=== PATIENT | male | born 1950 | race American Indian/Alaskan Native ===

== ENCOUNTER 2020-01-13 12:23 | Emergency (ER) | payer MEDICARE ==
--- NOTE | 2020-01-13 12:46 | Emergency Department Report ---
Blank Doc - Documentation Documentation: 69-year-old male that presents with bilateral leg swelling. This initial assessment/diagnostic orders/clinical plan/treatment(s) is/are subject to change based on patient's health status, clinical progression and re- assessment by fellow clinical providers in the ED. Further treatment and workup at subsequent clinical providers discretion. Patient/guardians urged not to elope from the ED as their condition may be serious if not clinically assessed and managed. Initial orders include: 1- Patient sent to MAIN ED for further evaluation and treatment 2- cardiac workup
--- NOTE | 2020-01-13 13:39 | XRay Report ---
CHEST 2 VIEWS INDICATION: Chest Pain. COMPARISON: None available. FINDINGS: Support devices: None. Heart: Enlarged. Pulmonary vasculature: Mild enlargement of the central pulmonary vessels. Lungs/pleura: Wedge-shaped airspace disease of the right lower lobe on both views. The rest of the zulay ngs are relatively clear. No pleural effusion. No pneumothorax. Additional findings: None. IMPRESSION: 1. Right lower lobe pneumonia. 2. Cardiomegaly but no CHF. Signer Name: Harry Arreola MD Signed: 01/13/2020 1:35 PM Workstation Name: [id number]
[2020-01-13 16:57] LABS: Basophils % (Auto) 0.8 % (0.0-1.8); Eosinophils % (Auto) 0.6 % (0.0-4.3); Hemoglobin 17.2 gm/dl (11.8-15.2); Lymphocytes # (Auto) 1.1 K/mm3 (1.2-5.4); Lymphocytes % (Auto) 19.7 % (13.4-35.0); Mean Corpuscular HGB Conc 32 % (32-34); Mean Corpuscular Volume 99 fl (84-94); Monocytes # (Auto) 0.3 K/mm3 (0.0-0.8); Monocytes % (Auto) 5.9 % (0.0-7.3); Red Blood Count 5.36 M/mm3 (3.65-5.03); Red Cell Distribution Width 15.8 % (13.2-15.2)
[2020-01-13 17:01] LABS: Platelet Count 133 K/mm3 (140-440)
[2020-01-13 17:14] LABS: Alanine Aminotransferase 12 units/L (7-56); Albumin 3.8 g/dL (3.9-5); BUN/Creatinine Ratio 18; Blood Urea Nitrogen 21 mg/dL (9-20); Calcium 9.7 mg/dL (8.4-10.2); Hemolysis Index 4
[2020-01-13 17:29] LABS: INR 1.14 (0.87-1.13)
[2020-01-13 17:30] LABS: Partial Thromboplastin Time 26.4 Sec. (24.2-36.6)
--- NOTE | 2020-01-13 18:30 | Emergency Department Report ---
ED General Adult HPI - General Chief complaint: Extremity Problem,Nontraumatic Stated complaint: WATER IN LEG Time Seen by Provider: 01/13/20 12:45 Source: patient, RN notes reviewed Mode of arrival: Ambulatory Limitations: No Limitations - History of Present Illness Initial comments: The patient is a 69-year-old gentleman. The patient does not known to myself previously. He does not have a local primary care doctor. He may have a history of hypertension, but he does not recall what medication he takes, if any. He presents to the ER with a primary complaint of bilateral lower extremity swelling for 1 month. This is painless. He denies DVT and pulmonary embolism risk factors. He specifically denies headache, neck pain, chest pain, abdominal pain, shortness of breath, orthopnea. He reports that also over the past 3 days, he has been coughing up blood, and possibly spitting up blood. He does have poor dentition, and he denies defecation of blood. Lower extremity swelling is constant, painless, does not radiate anywhere, and does not have exacerbating or relieving factors. He denies exposure to known coronavirus patients. He also denies coronavirus risk factors. -: Sudden, week(s) Location: left, right, lower extremity Quality: other Consistency: other Improves with: other Worsens with: other Associated Symptoms: other - Related Data Previous Rx's Medication Instructions Recorded Last Taken Type Amoxicillin/Potassium Clav 2 each PO BID #18 tab.er.12h 01/13/20 Unknown Rx [Augmentin Xr 1,000-62.5 Tab] Aspirin [Aspirin BABY CHEW TAB] 81 mg PO QDAY #30 tab.chew 01/13/20 Unknown Rx Chlorhexidine Mouthwash [Peridex] 15 ml MM BID #1 bottle 01/13/20 Unknown Rx Doxycycline Monohydrate 100 mg PO BID #9 capsule 01/13/20 Unknown Rx Furosemide [Lasix] 20 mg PO QDAY #30 tablet 01/13/20 Unknown Rx lisinopriL [Zestril TAB] 5 mg PO QDAY #30 tablet 01/13/20 Unknown Rx Allergies Allergy/AdvReac Type Severity Reaction Status Date / Time aspirin Allergy Nausea Unverified 03/25/14 09:22 ED Review of Systems ROS: Stated complaint: WATER IN LEG Other details as noted in HPI Constitutional: denies: fever Eyes: as per HPI ENT: as per HPI Respiratory: see HPI Cardiovascular: as per HPI Endocrine: see HPI Gastrointestinal: as per HPI Genitourinary: as per HPI Musculoskeletal: as per HPI Skin: as per HPI Neurological: as per HPI Psychiatric: as per HPI Hematological/Lymphatic: as per HPI ED Past Medical Hx - Past Medical History Previous Medical History?: Yes Hx Hypertension: Yes - Surgical History Past Surgical History?: Yes Additional Surgical History: stomach surgery for CA - Social History Smoking Status: Current Every Day Smoker Substance Use Type: None - Medications Home Medications: Home Medications Medication Instructions Recorded Confirmed Last Taken Type Amoxicillin/Potassium Clav 2 each PO BID #18 tab.er.12h 01/13/20 Unknown Rx [Augmentin Xr 1,000-62.5 Tab] Aspirin [Aspirin BABY CHEW TAB] 81 mg PO QDAY #30 tab.chew 01/13/20 Unknown Rx Chlorhexidine Mouthwash [Peridex] 15 ml MM BID #1 bottle 01/13/20 Unknown Rx Doxycycline Monohydrate 100 mg PO BID #9 capsule 01/13/20 Unknown Rx Furosemide [Lasix] 20 mg PO QDAY #30 tablet 01/13/20 Unknown Rx lisinopriL [Zestril TAB] 5 mg PO QDAY #30 tablet 01/13/20 Unknown Rx ED Physical Exam - General Limitations: No Limitations General appearance: alert, in no apparent distress - Head Head exam: Present: atraumatic, normocephalic - Eye Eye exam: Present: normal appearance, EOMI. Absent: nystagmus - ENT ENT exam: Present: normal exam, normal orophraynx, mucous membranes moist, normal external ear exam, other (The patient has poor dentition. Numerous dental caries are noted. Gingival irritation is noted. There is no obvious gingival abscess. There is no stridor or dysphonia) - Neck Neck exam: Present: normal inspection, full ROM. Absent: tenderness, meningismus - Respiratory Respiratory exam: Present: normal lung sounds bilaterally. Absent: respiratory distress, wheezes, rales, rhonchi, stridor - Cardiovascular Cardiovascular Exam: Present: regular rate, normal rhythm, normal heart sounds. Absent: systolic murmur, diastolic murmur, rubs, gallop, JVD - GI/Abdominal GI/Abdominal exam: Present: soft, normal bowel sounds. Absent: distended, tende rness, guarding, rebound, rigid, pulsatile mass - Rectal Rectal exam: Present: deferred - Extremities Exam Extremities exam: Present: full ROM, pedal edema (3+ edema noted in the bilateral lower extremity), other (2+ pulses noted in the bilateral upper and lower extremities. There is no palpable cord. negative Homans sign. Muscular compartments are soft. The pelvis is stable.). Absent: calf tenderness - Back Exam Back exam: Present: normal inspection, full ROM. Absent: tenderness, CVA tenderness (R), CVA tenderness (L), paraspinal tenderness, vertebral tenderness - Neurological Exam Neurological exam: Present: alert, normal gait, other (There is no facial droop. The tongue is midline. Extraocular movements are intact bilaterally. There is 5 out of 5 strength in bilateral upper and lower extremities. Sensation is intact to light touch bilateral upper and lower extremities. There is a normal gait.). Absent: motor sensory deficit - Psychiatric Psychiatric exam: Present: flat affect - Skin Skin exam: Present: warm, dry, intact, normal color. Absent: rash ED Course Vital Signs 01/13/20 01/13/20 12:45 18:29 Temperature 98.2 F Pulse Rate 103 H 75 Respiratory 18 16 Rate Blood Pressure 135/92 Blood Pressure 150/114 [Right] O2 Sat by Pulse 97 98 Oximetry ED Medical Decision Making - Lab Data Result diagrams: 01/13/20 16:13 01/13/20 16:13 Vital Signs 01/13/20 12:45 Temperature 98.2 F Pulse Rate 103 H Respiratory 18 Rate Blood Pressure 135/92 O2 Sat by Pulse 97 Oximetry Lab Results 01/13/20 01/13/20 01/13/20 Range/Units 16:13 16:13 16:13 WBC 5.4 (4.5-11.0) K/mm3 RBC 5.36 H (3.65-5.03) M/mm3 Hgb 17.2 H (11.8-15.2) gm/dl Hct 53.0 H (35.5-45.6) % MCV 99 H (84-94) fl MCH 32 (28-32) pg MCHC 32 (32-34) % RDW 15.8 H (13.2-15.2) % Plt Count 133 L (140-440) K/mm3 Lymph % (Auto) 19.7 (13.4-35.0) % [place] % (Auto) 5.9 (0.0-7.3) % Eos % (Auto) 0.6 (0.0-4.3) % Baso % (Auto) 0.8 (0.0-1.8) % Lymph # 1.1 L (1.2-5.4) K/mm3 [place] # 0.3 (0.0-0.8) K/mm3 Eos # 0.0 (0.0-0.4) K/mm3 Baso # 0.0 (0.0-0.1) K/mm3 Seg Neutrophils % 73.0 H (40.0-70.0) % Seg Neutrophils # 3.9 (1.8-7.7) K/mm3 PT 14.8 (12.2-14.9) Sec. INR 1.14 H (0.87-1.13) APTT 26.4 (24.2-36.6) Sec. Sodium 140 (137-145) mmol/L Potassium 4.5 (3.6-5.0) mmol/L Chloride 100.9 (98-107) mmol/L Carbon Dioxide 21 L (22-30) mmol/L Anion Gap 23 mmol/L BUN 21 H (9-20) mg/dL Creatinine 1.2 (0.8-1.5) mg/dL Estimated GFR > 60 ml/min BUN/Creatinine Ratio 18 % Glucose 110 H (75-100) mg/dL Calcium 9.7 (8.4-10.2) mg/dL Total Bilirubin 2.20 H (0.1-1.2) mg/dL AST 21 (5-40) units/L ALT 12 (7-56) units/L Alkaline Phosphatase 86 (35-129) units/L Troponin T 0.093 H (0.00-0.029) ng/mL NT-Pro-B Natriuret Pep > 58475 H (0-900) pg/mL Total Protein 8.0 (6.3-8.2) g/dL Albumin 3.8 L (3.9-5) g/dL Albumin/Globulin Ratio 0.9 % - EKG Data -: EKG Interpreted by Co EKG shows normal: sinus rhythm Rate: normal - EKG Data When compared to previous EKG there are: previous EKG unavailable 01/13/20 19:10 There is no prior EKG available for comparison. This shows a sinus rhythm, 94 bpm, left axis deviation, left anterior fascicular block, QTC is prolonged, borderline left bundle branch block, motion artifact, PVC, no prior for comparison, this is not a STEMI - Radiology Data Radiology results: report reviewed, image reviewed Print Report Referring Physician: KARINA OH Patient Name: WHIT DICKERSON Date of : 1950 Sex: Male Report Date: 2020-01-13 Report Status: Finalized Findings [facility] [address] [place] [address] XRay Report Signed Patient: WHIT DICKERSON MR#: [id number] [birth year] : 1950 Acct:[id number] Age/Sex: 69 / M ADM Date: 01/13/20 Loc: ED Attending Dr: Ordering Physician: KARINA OH NP Date of Service: 01/13/20 Procedure(s): XR chest routine 2V Accession Number(s): [id number] cc: KARINA OH NP Fluoro Time In Minutes: CHEST 2 VIEWS INDICATION: Chest Pain. COMPARISON: None available. FINDINGS: Support devices: None. Heart: Enlarged. Pulmonary vasculature: Mild enlargement of the central pulmonary vessels. Lungs/pleura: Wedge-shaped airspace disease of the right lower lobe on both views. The rest of the lungs are relatively clear. No pleural effusion. No pneumothorax. Additional findings: None. IMPRESSION: 1. Right lower lobe pneumonia. 2. Cardiomegaly but no CHF. Signer Name: Arturo Boone MD Signed: 01/13/2020 1:35 PM Workstation Name: [id number] Transcribed By: REF Dictated By: ARTURO BOONE MD Electronically Authenticated By: ARTURO BOONE MD Signed Date/Time: 01/13/20 133 DD/ 1332 TD/TT: - Medical Decision Making Differential diagnosis, including but not limited to: Poor dentition, gingivitis, pneumonia, congestive heart failure, dependent edema, venous insufficiency Assessment and plan: 69-year-old gentleman who is not currently tachycardic, tachypneic or hypoxic, who denies DVT and pulmonary embolism risk factors, with dependent lower extremity pitting edema for 1 month, without shortness of breath, orthopnea, or chest pain. He has very poor dentition without evidence of imminent airway collapse. Laboratory studies were sent prior to my personal evaluation. Elevated troponin is reviewed and appreciated, this is nonspecific, and I suspect it is likely a type II troponin leak. Elevated proBNP is also appreciated, without evidence of florid congestive heart failure, or florid pulmonary edema. Given 1 month of symptoms, and unremarkable respiratory status at this time, the patient is suitable to follow-up as an outpatient with primary care and/or cardiology. His "allergy" to aspirin is reported as GI intolerance without reported history of anaphylactic or anaphylactoid reaction. I contacted cardiology on-call, Dr. Max Cuba, and we discussed the patient's history, physical, laboratory studies and EKG, and I emphasized his duration of symptoms, and lack of respiratory symptoms. We both agree that the patient will be suitable to be started on outpatient medications and follow-up. We will start the patient on chlorhexidine, doxycycline, extended release Augmentin, L asix, aspirin, no need to follow-up with outpatient primary care, cardiology, and dental. Critical care attestation.: If time is entered above; I have spent that time in minutes in the direct care of this critically ill patient, excluding procedure time. ED Disposition Clinical Impression: Dependent edema, Poor dentition Disposition: DC-01 TO HOME OR SELFCARE Is pt being admited?: No Does the pt Need Aspirin: No Condition: Stable Additional Instructions: Rest, avoid heavy lifting, and avoid strenuous physical activities. Please limit salt intake. Consume at least 2 to 3 cups of water per day. Recommend that patient brush teeth every 12-24 hours, and floss teeth once every 24 hours. Recommend patient follow-up with an outpatient primary care doctor or manager banking within the next 3 to 5 days for lower extremity swelling, and coughing up blood. Avoid consumption of alcohol, tobacco, and smoke products. Participate in physical activities as tolerated. Recommend following up with a dentist within the next 7 to 10 days for dental checkup, and maintenance. Recommend patient take [id number] multivitamin. When taking aspirin, and Augmentin and doxycycline antibiotics, make certain to take with food, because these medications can cause upset stomach, nausea, vomiting and occasional diarrhea. We also recommend that the patient be careful when taking lisinopril medication, as in a small subset of patients, it may cause tongue swelling, lip swelling, mouth swelling, or throat swelling. If any of these symptoms develop, take 50 mg of Benadryl orally right away, 20 mg of Pepcid orally right away, and contacted 911. Please return to the emergency room right away with new, worsened or different symptoms, or symptoms not present on the initial emergency room evaluation Prescriptions: Aspirin [Aspirin BABY CHEW TAB] 81 mg PO QDAY #30 tab.chew Amoxicillin/Potassium Clav [Augmentin Xr 1,000-62.5 Tab] 2 each PO BID #18 tab.er.12h Doxycycline Monohydrate 100 mg PO BID #9 capsule Furosemide [Lasix] 20 mg PO QDAY #30 tablet Chlorhexidine Mouthwash [Peridex] 15 ml MM BID #1 bottle lisinopriL [Zestril TAB] 5 mg PO QDAY #30 tablet Referrals: ARTURO CHAVEZ MD [Primary Care Provider] - 3-5 Days NAIF CUBA MD [Staff Physician] - 3-5 Days RAE MCGEE MD [Staff Physician] - 3-5 Days [facility] [Outside] - 3-5 Days
[2020-01-13] MEDS ORDERED: AMOXICILLIN/K CLAV 500/125MG TAB PO ONE (19:02)
[2020-01-13] MEDS ORDERED: FUROSEMIDE 20 MG TAB PO ONE (19:02)
[2020-01-13] MEDS ORDERED: DOXYCYCLINE 100 MG TAB PO ONE (19:02)
[2020-01-13 19:23] VITALS: BP 138/100
== END 2020-01-13 21:23 | disposition home or self-care (01) ==
LOC: ED 12:23
DX: R60.9 Edema, unspecified (principal); K00.7 Teething syndrome; I10 Essential (primary) hypertension; F17.200 Nicotine dependence, unspecified, uncomplicated
CPT/HCPCS: 36415; 71046; 80053; 83880; 84484; 85025; 85610; 85730; 93005; 93010; 99284

== ENCOUNTER 2020-08-19 22:15 | Emergency (ER) | payer MEDICARE ==
[2020-08-19 23:54] LABS: Eosinophils # (Auto) 0.1 K/mm3 (0.0-0.4); Eosinophils % (Auto) 1.2 % (0.0-4.3); Hematocrit 49.6 % (35.5-45.6); Hemoglobin 16.2 gm/dl (11.8-15.2); Lymphocytes # (Auto) 1.6 K/mm3 (1.2-5.4); Lymphocytes % (Auto) 33.2 % (13.4-35.0); Mean Corpuscular HGB Conc 33 % (32-34); Mean Corpuscular Volume 98 fl (84-94); Monocytes # (Auto) 0.3 K/mm3 (0.0-0.8); Monocytes % (Auto) 5.2 % (0.0-7.3); Red Blood Count 5.06 M/mm3 (3.65-5.03); Red Cell Distribution Width 16.9 % (13.2-15.2)
[2020-08-20 00:05] LABS: Platelet Count 131 K/mm3 (140-440)
[2020-08-20 00:14] LABS: Albumin 4.3 g/dL (3.9-5); Calcium 10.3 mg/dL (8.4-10.2)
[2020-08-20 02:07] LABS: Bacteria,Urine 1+ /HPF (Negative); Bilirubin,Urine NEG (Negative); Blood,Urine NEG (Negative); Color,Urine Amber (Yellow); Hyaline Casts,Urine 3 /LPF; Mucus,Urine 1+ /HPF
--- NOTE | 2020-08-20 07:08 | Emergency Department Report ---
ED General Adult HPI - General Chief complaint: Medical Clearance Stated complaint: FACIAL SWELLING Time Seen by Provider: 08/20/20 06:12 Source: patient Mode of arrival: Ambulatory Limitations: No Limitations - History of Present Illness Initial comments: 69-year-old male, history of CHF, presents to ED with report of facial swelling. Patient states he has experienced some swelling underneath both eyes. Patient denies any pain, trauma, or vision changes. Patient reports onset yesterday. He also reports some edema to bilateral lower extremities. Patient has history of CHF, currently on spironolactone and Lasix. Patient denies any shortness of breath or chest pain. -: days(s) (1) Location: face, left, right, lower extremity Quality: other (Painless) Consistency: constant Improves with: none Worsens with: none Associated Symptoms: denies: chest pain, fever/chills, headaches, nausea/vomiting, shortness of breath - Related Data Previous Rx's Medication Instructions Recorded Last Taken Type Aspirin [Aspirin BABY CHEW TAB] 81 mg PO QDAY #30 tab.chew 01/13/20 2 Days Ago Rx ~04/28/20 Chlorhexidine Mouthwash [Peridex] 15 ml MM BID #1 bottle 01/13/20 2 Days Ago Rx ~04/28/20 lisinopriL [Zestril TAB] 5 mg PO QDAY #30 tablet 01/13/20 1 Day Ago Rx ~04/29/20 ALBUTEROL NEB's [Proventil 0.083% 2.5 mg IH Q4HRT PRN nebu 05/11/20 Unknown Rx NEBS] Acetaminophen [Acetaminophen TAB] 650 mg PO Q4H PRN tablet 05/11/20 Unknown Rx Aspirin EC [Halfprin EC] 81 mg PO QDAY #30 tablet 05/11/20 Unknown Rx Furosemide [Lasix TAB] 20 mg PO QDAY #30 tablet 05/11/20 Unknown Rx Melatonin [Melatonin 5MG TAB] 5 mg PO QHS PRN tablet 05/11/20 Unknown Rx Spironolactone [Aldactone] 25 mg PO QDAY #30 tablet 05/11/20 Unknown Rx carvediloL [Coreg] 6.25 mg PO BID #60 tablet 05/11/20 Unknown Rx lisinopriL [Zestril TAB] 5 mg PO QDAY #30 tablet 05/11/20 Unknown Rx Allergies Allergy/AdvReac Type Severity Reaction Status Date / Time No Known Allergies Allergy Verified 04/30/20 16:13 ED Review of Systems ROS: Stated complaint: FACIAL SWELLING Other details as noted in HPI Comment: All other systems reviewed and negative Eyes: denies: vision change Respiratory: denies: shortness of breath Cardiovascular: edema. denies: chest pain ED Past Medical Hx - Past Medical History Previous Medical History?: Yes Hx Hypertension: Yes Hx Congestive Heart Failure: Yes - Surgical History Past Surgical History?: Yes Additional Surgical History: stomach surgery for CA. stent for aneurysm per pt - Social History Smoking Status: Current Every Day Smoker Substance Use Type: None - Medications Home Medications: Home Medications Medication Instructions Recorded Confirmed Last Taken Type Aspirin [Aspirin BABY CHEW TAB] 81 mg PO QDAY #30 tab.chew 01/13/20 04/30/20 2 Days Ago Rx ~04/28/20 Chlorhexidine Mouthwash [Peridex] 15 ml MM BID #1 bottle 01/13/20 04/30/20 2 Days Ago Rx ~04/28/20 lisinopriL [Zestril TAB] 5 mg PO QDAY #30 tablet 01/13/20 04/30/20 1 Day Ago Rx ~04/29/20 ALBUTEROL NEB's [Proventil 0.083% 2.5 mg IH Q4HRT PRN nebu 05/11/20 Unknown Rx NEBS] Acetaminophen [Acetaminophen TAB] 650 mg PO Q4H PRN tablet 05/11/20 Unknown Rx Aspirin EC [Halfprin EC] 81 mg PO QDAY #30 tablet 05/11/20 Unknown Rx Furosemide [Lasix TAB] 20 mg PO QDAY #30 tablet 05/11/20 Unknown Rx Melatonin [Melatonin 5MG TAB] 5 mg PO QHS PRN tablet 05/11/20 Unknown Rx Spironolactone [Aldactone] 25 mg PO QDAY #30 tablet 05/11/20 Unknown Rx carvediloL [Coreg] 6.25 mg PO BID #60 tablet 05/11/20 Unknown Rx lisinopriL [Zestril TAB] 5 mg PO QDAY #30 tablet 05/11/20 Unknown Rx ED Physical Exam - General Limitations: No Limitations General appearance: alert, in no apparent distress - Head Head exam: Present: atraumatic, normocephalic - Eye Eye exam: Present: normal appearance, other (No significant facial edema present) - ENT ENT exam: Present: mucous membranes moist - Neck Neck exam: Present: normal inspection - Respiratory Respiratory exam: Present: normal lung sounds bilaterally. Absent: respiratory distress - Cardiovascular Cardiovascular Exam: Present: regular rate, normal rhythm - GI/Abdominal GI/Abdominal exam: Present: soft. Absent: distended, tenderness - Extremities Exam Extremities exam: Present: other (1+ edema bilateral lower extremities) - Neurological Exam Neurological exam: Present: alert, oriented X3 - Psychiatric Psychiatric exam: Present: normal affect, normal mood - Skin Skin exam: Present: warm, dry, intact, normal color ED Course Vital Signs 08/19/20 08/20/20 08/20/20 22:40 03:25 06:26 Temperature 97.5 F L Pulse Rate 102 H 65 85 Respiratory 18 18 16 Rate Blood Pressure 159/98 Blood Pressure 149/104 134/84 [Left] O2 Sat by Pulse 95 94 94 Oximetry 08/20/20 08/20/20 08/20/20 07:00 07:15 07:30 Temperature Pulse Rate 84 78 Respiratory 18 16 Rate Blood Pressure Blood Pressure 144/107 140/101 139/94 [Left] O2 Sat by Pulse 95 Oximetry 08/20/20 08/20/20 08/20/20 07:46 08:01 08:15 Temperature Pulse Rate 83 86 79 Respiratory 16 16 16 Rate Blood Pressure Blood Pressure 143/85 143/75 132/80 [Left] O2 Sat by Pulse 99 98 96 Oximetry ED Medical Decision Making - Lab Data Result diagrams: 08/19/20 23:10 08/19/20 23:10 - Radiology Data Radiology results: report reviewed, image reviewed - Medical Decision Making 69-year-old male with history of CHF presents to ED reporting some facial edema. No apparent or significant edema on exam. Patient has 1+ bilateral pitting edema present. Currently on Lasix and spironolactone. No difficulty breathing. Chest x-ray shows no pulmonary edema. Patient has eaten a breakfast tray and is comfortable. Will discharge at this time. Outpatient follow-up advised. - Differential Diagnosis CHF, pulmonary edema Critical care attestation.: If time is entered above; I have spent that time in minutes in the direct care of this critically ill patient, excluding procedure time. ED Disposition Clinical Impression: Edema Disposition: DC-01 TO HOME OR SELFCARE Is pt being admited?: No Condition: Stable Referrals: PRIMARY CARE, [Primary Care Provider] - 3-5 Days
[2020-08-20 08:55] VITALS: BP 132/80
--- NOTE | 2020-08-20 10:54 | XRay Report ---
CHEST 1 VIEW INDICATION: sob COMPARISON: 04/30/2020 FINDINGS: Support devices: None Heart: Enlarged but stable Lungs/Pleura: No pleural fluid. No convincing evidence of parenchymal disease. IMPRESSION: 1. Cardiomegaly but no definite acute disease. Signer Name: Juanpablo De La Rosa MD Signed: 08/20/2020 10:50 AM Workstation Name: [id number]
== END 2020-08-20 13:00 | disposition home or self-care (01) ==
LOC: ED 22:15
DX: R60.9 Edema, unspecified (principal); I11.0 Hypertensive heart disease with heart failure; I50.9 Heart failure, unspecified; F17.200 Nicotine dependence, unspecified, uncomplicated; Z98.890 Other specified postprocedural states; Z79.899 Other long term (current) drug therapy
CPT/HCPCS: 36415; 71045; 80053; 81001; 85025